=== PATIENT | male | born 1940 | race Caucasian/White ===

== ENCOUNTER 2019-01-19 00:06 | Inpatient (IN) | payer MEDICARE ==
[2019-01-19 00:36] VITALS: BP 167/81
[2019-01-19] MEDS ORDERED: Magnesium Hydroxide (MOM) 30 mL UDC PO PRN (04:53)
[2019-01-19] MEDS: Multivitamin Tab PO SCH (08:44)
[2019-01-19 09:35] LABS: CHOLESTEROL 227 mg/dL (<200); HDL -HIGH DENSITY LIPOPROTEIN 56 mg/dL (23-92); TRIGLYCERIDES 150 mg/dL (<150)
--- NOTE | 2019-01-19 13:05 | History & Physical ---
ADMIT DATE: 01/19/2019 IDENTIFYING INFORMATION: The patient is an 78-year-old male. CHIEF COMPLAINT: The patient admitted on hold until for danger to self. HISTORY OF PRESENT ILLNESS: The patient was admitted on a hold because he was found with a knife in his hand. The patient himself was a reasonable historian. He said that he has a friend of him that stage IV cancer and that he was upset. He was crying. He picked up a knife his son saw him and he picked it from him. His son called the police. The patient reports that he has been sleeping well, eating well. He denies any auditory or visual hallucination or paranoia. He admits to feeling depressed because of the of his friend. He denies any substance abuse. PAST PSYCHIATRIC HISTORY: The patient denies any prior psychiatric treatment. The patient denies any prior suicide attempt. He reports he drinks alcohol once in a while glass of wine. Never had substance abuse problems. MEDICAL HISTORY: The patient apparently has longterm. He has high blood pressure. He is on metoprolol. ALLERGIES: HE IS ALLERGIC TO PENICILLIN. FAMILY AND SOCIAL HISTORY: The patient, who has been 49 years, has 1 son, a boy that 44 years of age. His is 70 years of age and he is happily . He lives with his family. He reports that he has high school education. 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 He reported no family psychotic disorder. He has never had substance abuse problem. No legal issues. MENTAL STATUS EXAMINATION: The patient is appropriately dressed, not well groomed. He was alert. He was able to tell me that she is in the hospital. He believes this 03/2000. He know why he is here. His long-term with her age, date of . Recent memory is good for events are coming here, what he ate for breakfast and his insight about his illness is fair. He knows he has a problem. Judgment is poor with him trying to harm himself. The patient, however, was very difficult. Overnight, he was very irritable, agitated and soon became better when they give him the blood pressure medications. IMPRESSION: Major depression, single episode, severe with no psychosis. MEDICAL DIAGNOSIS: Hypertension. PLAN: The patient will be also medical: History of a coma. His assets, he wants to get help. Negative poor coping skills. INITIAL TREATMENT AND PLAN: The patient will be started on Lexapro. We will do group therapy, milieu therapy, and individual therapy. ESTIMATED LENGTH OF STAY: 3-7 days. DISCHARGE CRITERIA: Decrease in depression, feeling better after discharge, outpatient treatment. [facility]# [id number]
--- NOTE | 2019-01-19 14:47 | History and Physical ---
History of Present Illness - HPI Chief Complaint: Patient was put in 5150 HPI: Patient was found with a knife and family assumed that wanted to hurt himself, Family called police and he was put in 5150 Vital Signs: Last Vital Signs Temp 98 F 01/19/19 06:30 Pulse 123 01/19/19 08:44 Resp 20 01/19/19 06:30 BP 158/100 01/19/19 08:44 Pulse Ox 98 01/19/19 06:30 Past Medical History Cardiovascular: Report: HTN Pulmonary: Report: No Pertinent Hx [employer]: Report: No Pertinent Hx GI: Report: No Pertinent Hx Psych: Report: No Pertinent Hx Musculoskeletal: Report: No Pertinent Hx Rheumatologic: Report: No pertinent Hx Infectious Disease: Report: No Pertinent Hx Renal/: Report: No Pertinent Hx Endocrine: Report: No Pertinent Hx Dermatology: Report: No Pertinent Hx Other History: glaucoma and macular degeneration - Past Surgical History Past Surgical History: No pertinent Hx Family Medical History - Family Member Mother History Unknown: Yes Father History Unknown: Yes Social History Smoke: No Alcohol: Occassional Drugs: None Lives: With Family Domestic Violence: Negative - Allergies Allergies/Adverse Reactions: Allergies Allergy/AdvReac Type Severity Reaction Status Date / Time Penicillins [PCN] Allergy Verified 01/19/19 00:36 Review of Systems - Review of Systems Constitutional: Report: No Significant Eyes: Report: Vision Change, Other ENT: Report: No Significant Respiratory: Report: No Significant Cardiovascular: Report: No Significant Gastrointestinal: Report: No Significant Genitourinary: Report: No Significant Musculoskeletal: Report: No Significant Skin: Report: No Significant Neurological: Report: No Significant Physical Exam - Physical Exam HEENT: Report: Ears Nose Throat within normal limits Neck: Report: Within normal limits Cardiovascular Systems: Report: Regular, Rate and Rhythm Respiratory: Report: Breath Sounds are within normal limits Abdomen: Report: Non-tender to palpation Back: Report: Inspection of back is within normal limits. Extremities: Report: Non-tender to palpation. Skin: Report: Color of skin is within normal limits Neuro/Psych: Report: Depressed affect - Lab Results All Lab Results last 24 hours: Laboratory Results - last 24 hr 01/19/19 06:43 Triglycerides 150 Cholesterol 227 H LDL Cholesterol Direct 161 HDL Cholesterol 56 - Assessment Assessment: Patient is sleeping but arousable, he is in no acute distress. Dx: HTN, Glaucoma, Macular degeneration, Major depression. - Plan Plan: Patient is follow by Psychiatry. He is in Metoprolol for HTN and heart rate control. Will continue to monitor.
[2019-01-20 07:46] LABS: % BASOPHILS 0.4 % (0.0-2.0); % EOSINOPHILS 3.3 % (0.0-5.0); % LYMPHOCYTES 26.6 % (20.0-50.0); % MONOCYTES 9.4 % (2.0-10.0); % NEUTROPHILS 60.3 % (40.0-80.0); EOSINOPHILE ABSOLUTE 0.3 Th/cmm (0.1-0.4); HEMATOCRIT 44.8 % (41.0-60); HEMOGLOBIN 14.8 gm/dL (12-16); LYMPHOCYTE ABSOLUTE 2.2 Th/cmm (1.5-3.0); MEAN CELL VOLUME 89.7 fl (80-99); MEAN CORPUSCULAR HEMOGLOBIN 29.6 pg (27.0-31.0); MEAN PLATELET VOLUME 8.1 fl; MONOCYTE ABSOLUTE 0.8 Th/cmm (0.3-1.0); NEUTROPHILE ABSOLUTE 4.8 Th/cmm (1.8-8.0); PLATELET COUNT 205 Th/cmm (150-400); RED BLOOD COUNT 4.99 Mil/cmm (3.80-5.80); RED CELL DISTRIBUTION WIDTH 12.7 % (11.5-20.0); WHITE BLOOD COUNT 8.1 Th/cmm (4.8-10.8)
[2019-01-20 08:25] LABS: ALB/GLOB RATIO 1.5 (1.0-1.8); ALBUMIN 3.8 gm/dL (4.2-5.5); ALKALINE PHOSPHATASE 64 U/L (34-104); BILIRUBIN,TOTAL 1.2 mg/dL (0.3-1.0); BUN - UREA NITROGEN 20 mg/dL (7-25); CALCIUM SERUM 9.4 mg/dL (8.6-10.3); CARBON DIOXIDE 20.4 mEq/L (21.0-31.0); CHLORIDE 104 mEq/L (98-107); CREATININE - SERUM 0.7 mg/dL (0.7-1.3); GLUCOSE 162 mg/dL (70-105); POTASSIUM SERUM 3.4 mEq/L (3.5-5.1); SGOT 12 U/L (13-39); SGPT/ALT 15 U/L (7-52); SODIUM SERUM 133 mEq/L (136-145); TOTAL PROTEIN,SERUM 6.4 gm/dL (6.0-8.3)
[2019-01-20] MEDS: Multivitamin Tab PO SCH (08:27)
[2019-01-20] MEDS: Escitalopram Oxalate 5 mg Tab PO SCH (08:27)
--- NOTE | 2019-01-20 08:43 | General Progress Note ---
Subjective - Review of Systems Service Date: 01/20/19 Subjective: I fell fine Objective - Results Result Diagrams: 01/20/19 07:30 Recent Labs: Laboratory Last Values WBC 8.1 Th/cmm (4.8-10.8) 01/20/19 07:30 RBC 4.99 Mil/cmm (3.80-5.80) 01/20/19 07:30 Hgb 14.8 gm/dL (12-16) 01/20/19 07:30 Hct 44.8 % (41.0-60) 01/20/19 07:30 MCV 89.7 fl (80-99) 01/20/19 07:30 MCH 29.6 pg (27.0-31.0) 01/20/19 07:30 MCHC Differential 33.0 pg (28.0-36.0) 01/20/19 07:30 RDW 12.7 % (11.5-20.0) 01/20/19 07:30 Plt Count 205 Th/cmm (150-400) 01/20/19 07:30 MPV 8.1 fl 01/20/19 07:30 Neutrophils % 60.3 % (40.0-80.0) 01/20/19 07:30 Lymphocytes % 26.6 % (20.0-50.0) 01/20/19 07:30 Monocytes % 9.4 % (2.0-10.0) 01/20/19 07:30 Eosinophils % 3.3 % (0.0-5.0) 01/20/19 07:30 Basophils % 0.4 % (0.0-2.0) 01/20/19 07:30 Triglycerides 150 mg/dL (<150) 01/19/19 06:43 Cholesterol 227 mg/dL (<200) H 01/19/19 06:43 LDL Cholesterol Direct 161 mg/dL (75-193) 01/19/19 06:43 HDL Cholesterol 56 mg/dL (23-92) 01/19/19 06:43 - Physical Exam Vitals and I&O: Vital Signs Temp 98 F 01/20/19 06:33 Pulse 92 01/20/19 08:28 Resp 18 01/20/19 06:33 BP 120/82 01/20/19 08:28 Pulse Ox 98 01/20/19 06:33 Intake & Output 01/19/19 01/20/19 01/20/19 18:59 06:59 18:59 Intake Total 240 Balance 240 Intake: Oral 240 Other: # Voids 1 Active Medications: Current Medications Acetaminophen (Tylenol) 650 mg PO Q4HR PRN PRN Reason: Mild Pain / Temp above 100 Stop: 03/20/19 03:51 Brimonidine Tartrate (Alphagan 0.15% Ophth Soln) 1 drop EACH EYE Q12HR@0630, 1830 [facility] Stop: 03/20/19 18:29 Last Admin: 01/20/19 06:30 Dose: 1 drop Dorzolamide/Timolol (Cosopt Ophth Soln) 1 drop EACH EYE Q12HR@0600,1800 [facility] Stop: 03/20/19 17:59 Last Admin: 01/20/19 06:00 Dose: 1 drop Escitalopram Oxalate (Lexapro) 5 mg PO DAILY [facility]; Protocol Stop: 03/21/19 08:59 Last Admin: 01/20/19 08:27 Dose: 5 mg Latanoprost (Xalatan 0.005% Ophth Soln) 1 drop EACH EYE HS [facility] Stop: 03/20/19 20:59 Last Admin: 01/19/19 21:15 Dose: 1 drop Lorazepam (Ativan) 0.5 mg PO Q4HR PRN; Protocol PRN Reason: Anxiety/agitation Stop: 02/18/19 03:51 Last Admin: 01/19/19 08:44 Dose: 0.5 mg Magnesium Hydroxide (Milk Of Magnesia) 30 ml PO HS PRN PRN Reason: Constipation Metoprolol Tartrate (Lopressor) 25 mg PO BID [facility] Stop: 03/20/19 08:59 Last Admin: 01/20/19 08:28 Dose: 25 mg Multivitamins/Vitamin C (Theragran) 1 tab PO DAILY [facility] Stop: 03/20/19 08:59 Last Admin: 01/20/19 08:27 Dose: 1 tab Zolpidem Tartrate (Ambien) 5 mg PO HS PRN PRN Reason: Insomnia Stop: 03/20/19 03:51 General: Alert, No acute distress HEENT: Atraumatic, Other (Low vision) Neck: Supple Cardiovascular: Regular rate Lungs: Clear to auscultation Abdomen: Bowel sounds Neurological: Normal gait Skin: Other (Warm ) Psych/Mental Status: Other (Awake, alert, calm) Assessment/Plan - Assessment Assessment: Patient is awake, alert, calm, in no acute distress. BP and Heart rate on control. Dx: HTN, Galucoma, Macular degeneration, Major depression. - Plan Plan: Patient is follow by Psychiatry. He is in Metoprolol for HTN and heart rate control. Will continue to monitor.
--- NOTE | 2019-01-21 00:33 | Progress Notes ---
DATE: 01/20/2019 Case was discussed with staff of the patient and reviewed records. We also met with his son and who happens to be here. They report that this patient needs to have a psychiatrist, his psychiatrist . The patient has been going through a lot changes. He has had 2 friends who and one is currently ill, and in the last 2 months, this has been precipitating factor. The patient has no prior suicide attempt; however, he was hospitalized like 20 years ago in [facility] and they treated him there and he was able to get help. He has been stressed out. He is hard of hearing and cannot see very well. So, they do not want him to go anywhere except back home and they want to make sure that he stays stable. He is tolerating the Lexapro with no side effects. The patient has minimal events that led to his admission. He is willing to continue treatment and we will continue to work with the patient in group therapy, milieu therapy, and adjust medications as needed. JOB# [id number]
--- NOTE | 2019-01-21 08:42 | General Progress Note ---
Subjective - Review of Systems Service Date: 01/21/19 Subjective: I am fine Objective - Results Result Diagrams: 01/20/19 07:30 01/20/19 07:30 Recent Labs: Laboratory Last Values WBC 8.1 Th/cmm (4.8-10.8) 01/20/19 07:30 RBC 4.99 Mil/cmm (3.80-5.80) 01/20/19 07:30 Hgb 14.8 gm/dL (12-16) 01/20/19 07:30 Hct 44.8 % (41.0-60) 01/20/19 07:30 MCV 89.7 fl (80-99) 01/20/19 07:30 MCH 29.6 pg (27.0-31.0) 01/20/19 07:30 MCHC Differential 33.0 pg (28.0-36.0) 01/20/19 07:30 RDW 12.7 % (11.5-20.0) 01/20/19 07:30 Plt Count 205 Th/cmm (150-400) 01/20/19 07:30 MPV 8.1 fl 01/20/19 07:30 Neutrophils % 60.3 % (40.0-80.0) 01/20/19 07:30 Lymphocytes % 26.6 % (20.0-50.0) 01/20/19 07:30 Monocytes % 9.4 % (2.0-10.0) 01/20/19 07:30 Eosinophils % 3.3 % (0.0-5.0) 01/20/19 07:30 Basophils % 0.4 % (0.0-2.0) 01/20/19 07:30 Sodium 133 mEq/L (136-145) L 01/20/19 07:30 Potassium 3.4 mEq/L (3.5-5.1) L 01/20/19 07:30 Chloride 104 mEq/L (98-107) 01/20/19 07:30 Carbon Dioxide 20.4 mEq/L (21.0-31.0) L 01/20/19 07:30 Anion Gap 12.0 (7.0-16.0) 01/20/19 07:30 BUN 20 mg/dL (7-25) 01/20/19 07:30 Creatinine 0.7 mg/dL (0.7-1.3) 01/20/19 07:30 Est GFR ( Amer) TNP 01/20/19 07:30 Est GFR (Non-Af Amer) TNP 01/20/19 07:30 BUN/Creatinine Ratio 28.6 01/20/19 07:30 Glucose 162 mg/dL (70-105) H 01/20/19 07:30 Calcium 9.4 mg/dL (8.6-10.3) 01/20/19 07:30 Total Bilirubin 1.2 mg/dL (0.3-1.0) H 01/20/19 07:30 AST 12 U/L (13-39) L 01/20/19 07:30 ALT 15 U/L (7-52) 01/20/19 07:30 Alkaline Phosphatase 64 U/L (34-104) 01/20/19 07:30 Total Protein 6.4 gm/dL (6.0-8.3) 01/20/19 07:30 Albumin 3.8 gm/dL (4.2-5.5) L 01/20/19 07:30 Globulin 2.6 gm/dL 01/20/19 07:30 Albumin/Globulin Ratio 1.5 (1.0-1.8) 01/20/19 07:30 Triglycerides 150 mg/dL (<150) 01/19/19 06:43 Cholesterol 227 mg/dL (<200) H 01/19/19 06:43 LDL Cholesterol Direct 161 mg/dL (75-193) 01/19/19 06:43 HDL Cholesterol 56 mg/dL (23-92) 01/19/19 06:43 TSH 0.62 uIU/ml (0.34-5.60) 01/20/19 07:30 - Physical Exam Vitals and I&O: Vital Signs Temp 98.6 F 01/21/19 06:33 Pulse 94 01/21/19 06:33 Resp 20 01/21/19 06:33 BP 141/69 01/21/19 06:33 Pulse Ox 96 01/21/19 06:33 Intake & Output 01/20/19 01/21/19 01/21/19 18:59 06:59 18:59 Intake Total 950 120 Balance 950 120 Intake: Oral 950 120 Other: # Voids 4 2 # Bowel Movements 1 0 Active Medications: Current Medications Acetaminophen (Tylenol) 650 mg PO Q4HR PRN PRN Reason: Mild Pain / Temp above 100 Stop: 03/20/19 03:51 Brimonidine Tartrate (Alphagan 0.15% Oph Soln) 1 drop EACH EYE Q12HR@0630, 1830 [facility] Stop: 03/20/19 18:29 Last Admin: 01/21/19 06:54 Dose: 1 drop Dorzolamide/Timolol (Cosopt Ophth Soln) 1 drop EACH EYE Q12HR@0600,1800 [facility] Stop: 03/20/19 17:59 Last Admin: 01/21/19 06:28 Dose: 1 drop Escitalopram Oxalate (Lexapro) 5 mg PO DAILY [facility]; Protocol Stop: 03/21/19 08:59 Last Admin: 01/20/19 08:27 Dose: 5 mg Latanoprost (Xalatan 0.005% Oph Soln) 1 drop EACH EYE HS [facility] Stop: 03/20/19 20:59 Last Admin: 01/20/19 21:18 Dose: 1 drop Lorazepam (Ativan) 0.5 mg PO Q4HR PRN; Protocol PRN Reason: Anxiety/agitation Stop: 02/18/19 03:51 Last Admin: 01/19/19 08:44 Dose: 0.5 mg Magnesium Hydroxide (Milk Of Magnesia) 30 ml PO HS PRN PRN Reason: Constipation Metoprolol Tartrate (Lopressor) 25 mg PO BID [facility] Stop: 03/20/19 08:59 Last Admin: 01/20/19 16:36 Dose: 25 mg Multivitamins/Vitamin C (Theragran) 1 tab PO DAILY [facility] Stop: 03/20/19 08:59 Last Admin: 01/20/19 08:27 Dose: 1 tab Zolpidem Tartrate (Ambien) 5 mg PO HS PRN PRN Reason: Insomnia Stop: 03/20/19 03:51 General: Alert, No acute distress HEENT: Atraumatic, Other (Low vision) Neck: Supple Cardiovascular: Regular rate Lungs: Clear to auscultation Abdomen: Bowel sounds Neurological: Normal gait Skin: Other (Warm ) Psych/Mental Status: Other (Awake, alert, calm) Assessment/Plan - Assessment Assessment: Patient is sleeping but arousable, he is in no acute distress. BP and heart rate on control. Dx: HTN, Glaucoma, Macular degeneration, Legally blind, Major depression. - Plan Plan: Patient is follow by Psychiatry. He is in Metoprolol for HTN and heart rate control. Will continue to monitor.
[2019-01-21] MEDS: Multivitamin Tab PO SCH (08:49)
[2019-01-21] MEDS: Escitalopram Oxalate 5 mg Tab PO SCH (08:49)
--- NOTE | 2019-01-22 00:18 | Progress Notes ---
DATE: 01/21/2019 SUBJECTIVE: Case was discussed with staff of the patient, reviewed records. The patient is alert; however, he is lying. He is, however, somewhat hard of hearing; however, he is sleeping well, eating well. He is minimizing any current intent to harm himself or anybody. He tolerated the Lexapro with no side effects. His TSH is within normal range. He has high cholesterol, the rest are within normal range of lipid panel. His chemistry panel with low sodium, low potassium, high blood sugar, and high total bilirubin. His CBC is within normal range. We will continue to work with the patient in group therapy, milieu therapy, and adjust medications as needed. [facility]# [id number]
--- NOTE | 2019-01-22 08:52 | General Progress Note ---
Subjective - Review of Systems Service Date: 01/22/19 Subjective: I am fine Objective - Results Result Diagrams: 01/20/19 07:30 01/20/19 07:30 Recent Labs: Laboratory Last Values WBC 8.1 Th/cmm (4.8-10.8) 01/20/19 07:30 RBC 4.99 Mil/cmm (3.80-5.80) 01/20/19 07:30 Hgb 14.8 gm/dL (12-16) 01/20/19 07:30 Hct 44.8 % (41.0-60) 01/20/19 07:30 MCV 89.7 fl (80-99) 01/20/19 07:30 MCH 29.6 pg (27.0-31.0) 01/20/19 07:30 MCHC Differential 33.0 pg (28.0-36.0) 01/20/19 07:30 RDW 12.7 % (11.5-20.0) 01/20/19 07:30 Plt Count 205 Th/cmm (150-400) 01/20/19 07:30 MPV 8.1 fl 01/20/19 07:30 Neutrophils % 60.3 % (40.0-80.0) 01/20/19 07:30 Lymphocytes % 26.6 % (20.0-50.0) 01/20/19 07:30 Monocytes % 9.4 % (2.0-10.0) 01/20/19 07:30 Eosinophils % 3.3 % (0.0-5.0) 01/20/19 07:30 Basophils % 0.4 % (0.0-2.0) 01/20/19 07:30 Sodium 133 mEq/L (136-145) L 01/20/19 07:30 Potassium 3.4 mEq/L (3.5-5.1) L 01/20/19 07:30 Chloride 104 mEq/L (98-107) 01/20/19 07:30 Carbon Dioxide 20.4 mEq/L (21.0-31.0) L 01/20/19 07:30 Anion Gap 12.0 (7.0-16.0) 01/20/19 07:30 BUN 20 mg/dL (7-25) 01/20/19 07:30 Creatinine 0.7 mg/dL (0.7-1.3) 01/20/19 07:30 Est GFR ( Amer) TNP 01/20/19 07:30 Est GFR (Non-Af Amer) TNP 01/20/19 07:30 BUN/Creatinine Ratio 28.6 01/20/19 07:30 Glucose 162 mg/dL (70-105) H 01/20/19 07:30 Calcium 9.4 mg/dL (8.6-10.3) 01/20/19 07:30 Total Bilirubin 1.2 mg/dL (0.3-1.0) H 01/20/19 07:30 AST 12 U/L (13-39) L 01/20/19 07:30 ALT 15 U/L (7-52) 01/20/19 07:30 Alkaline Phosphatase 64 U/L (34-104) 01/20/19 07:30 Total Protein 6.4 gm/dL (6.0-8.3) 01/20/19 07:30 Albumin 3.8 gm/dL (4.2-5.5) L 01/20/19 07:30 Globulin 2.6 gm/dL 01/20/19 07:30 Albumin/Globulin Ratio 1.5 (1.0-1.8) 01/20/19 07:30 Triglycerides 150 mg/dL (<150) 01/19/19 06:43 Cholesterol 227 mg/dL (<200) H 01/19/19 06:43 LDL Cholesterol Direct 161 mg/dL (75-193) 01/19/19 06:43 HDL Cholesterol 56 mg/dL (23-92) 01/19/19 06:43 TSH 0.62 uIU/ml (0.34-5.60) 01/20/19 07:30 - Physical Exam Vitals and I&O: Vital Signs Temp 97.2 F 01/22/19 06:38 Pulse 91 01/22/19 06:38 Resp 18 01/22/19 06:38 BP 149/70 01/22/19 06:38 Pulse Ox 98 01/22/19 06:38 Intake & Output 01/21/19 01/22/19 01/22/19 18:59 06:59 18:59 Intake Total 1500 120 Balance 1500 120 Intake: Oral 1500 120 Other: # Voids 3 2 # Bowel Movements 0 0 Active Medications: Current Medications Acetaminophen (Tylenol) 650 mg PO Q4HR PRN PRN Reason: Mild Pain / Temp above 100 Stop: 03/20/19 03:51 Brimonidine Tartrate (Alphagan 0.15% Oph Soln) 1 drop EACH EYE Q12HR@0630, 1830 [facility] Stop: 03/20/19 18:29 Last Admin: 01/22/19 06:54 Dose: 1 drop Dorzolamide/Timolol (Cosopt Ophth Soln) 1 drop EACH EYE Q12HR@0600,1800 [facility] Stop: 03/20/19 17:59 Last Admin: 01/22/19 06:29 Dose: 1 drop Escitalopram Oxalate (Lexapro) 5 mg PO DAILY [facility]; Protocol Stop: 03/21/19 08:59 Last Admin: 01/21/19 08:49 Dose: 5 mg Latanoprost (Xalatan 0.005% Oph Soln) 1 drop EACH EYE HS [facility] Stop: 03/20/19 20:59 Last Admin: 01/21/19 20:12 Dose: 1 drop Lorazepam (Ativan) 0.5 mg PO Q4HR PRN; Protocol PRN Reason: Anxiety/agitation Stop: 02/18/19 03:51 Last Admin: 01/19/19 08:44 Dose: 0.5 mg Magnesium Hydroxide (Milk Of Magnesia) 30 ml PO HS PRN PRN Reason: Constipation Metoprolol Tartrate (Lopressor) 25 mg PO BID [facility] Stop: 03/20/19 08:59 Last Admin: 01/21/19 16:54 Dose: 25 mg Multivitamins/Vitamin C (Theragran) 1 tab PO DAILY [facility] Stop: 03/20/19 08:59 Last Admin: 01/21/19 08:49 Dose: 1 tab Zolpidem Tartrate (Ambien) 5 mg PO HS PRN PRN Reason: Insomnia Stop: 03/20/19 03:51 General: Alert, No acute distress HEENT: Atraumatic, Other (Low vision) Neck: Supple Cardiovascular: Regular rate Lungs: Clear to auscultation Abdomen: Bowel sounds Neurological: Normal gait Skin: Other (Warm ) Psych/Mental Status: Other (Awake, alert, calm) Assessment/Plan - Assessment Assessment: Patient is sleeping but arousable, he is in no acute distress. BP and heart rate on control. Dx: HTN, Glaucoma, Macular degeneration, Legally blind, Major depression. - Plan Plan: Patient is follow by Psychiatry. He is in Metoprolol for HTN and heart rate control. Will continue to monitor.
[2019-01-22] MEDS: Escitalopram Oxalate 5 mg Tab PO SCH (09:41)
[2019-01-22] MEDS: Multivitamin Tab PO SCH (09:41)
--- NOTE | 2019-01-23 00:08 | Progress Notes ---
DATE: 01/22/2019 Case was discussed with staff of the patient, reviewed records. The patient continues to be depressed, continues to stay to himself. He is legally blind. He is unpredictable. He is on Lexapro and I did increase the dose yesterday to 10 mg a day with no side effects, no sedation, no nausea and his family would like for him to be able to go home. They do want to be placed in any nursing facility and we will continue to work with the patient in group therapy, milieu therapy, adjust the medication as needed. JOB# [id number]
--- NOTE | 2019-01-23 00:22 | Progress Notes ---
DATE [facility]# [id number] MTDMartina
--- NOTE | 2019-01-23 08:44 | General Progress Note ---
Subjective - Review of Systems Service Date: 01/23/19 Subjective: I am ok Objective - Results Result Diagrams: 01/20/19 07:30 01/20/19 07:30 Recent Labs: Laboratory Last Values WBC 8.1 Th/cmm (4.8-10.8) 01/20/19 07:30 RBC 4.99 Mil/cmm (3.80-5.80) 01/20/19 07:30 Hgb 14.8 gm/dL (12-16) 01/20/19 07:30 Hct 44.8 % (41.0-60) 01/20/19 07:30 MCV 89.7 fl (80-99) 01/20/19 07:30 MCH 29.6 pg (27.0-31.0) 01/20/19 07:30 MCHC Differential 33.0 pg (28.0-36.0) 01/20/19 07:30 RDW 12.7 % (11.5-20.0) 01/20/19 07:30 Plt Count 205 Th/cmm (150-400) 01/20/19 07:30 MPV 8.1 fl 01/20/19 07:30 Neutrophils % 60.3 % (40.0-80.0) 01/20/19 07:30 Lymphocytes % 26.6 % (20.0-50.0) 01/20/19 07:30 Monocytes % 9.4 % (2.0-10.0) 01/20/19 07:30 Eosinophils % 3.3 % (0.0-5.0) 01/20/19 07:30 Basophils % 0.4 % (0.0-2.0) 01/20/19 07:30 Sodium 133 mEq/L (136-145) L 01/20/19 07:30 Potassium 3.4 mEq/L (3.5-5.1) L 01/20/19 07:30 Chloride 104 mEq/L (98-107) 01/20/19 07:30 Carbon Dioxide 20.4 mEq/L (21.0-31.0) L 01/20/19 07:30 Anion Gap 12.0 (7.0-16.0) 01/20/19 07:30 BUN 20 mg/dL (7-25) 01/20/19 07:30 Creatinine 0.7 mg/dL (0.7-1.3) 01/20/19 07:30 Est GFR ( Amer) TNP 01/20/19 07:30 Est GFR (Non-Af Amer) TNP 01/20/19 07:30 BUN/Creatinine Ratio 28.6 01/20/19 07:30 Glucose 162 mg/dL (70-105) H 01/20/19 07:30 Calcium 9.4 mg/dL (8.6-10.3) 01/20/19 07:30 Total Bilirubin 1.2 mg/dL (0.3-1.0) H 01/20/19 07:30 AST 12 U/L (13-39) L 01/20/19 07:30 ALT 15 U/L (7-52) 01/20/19 07:30 Alkaline Phosphatase 64 U/L (34-104) 01/20/19 07:30 Total Protein 6.4 gm/dL (6.0-8.3) 01/20/19 07:30 Albumin 3.8 gm/dL (4.2-5.5) L 01/20/19 07:30 Globulin 2.6 gm/dL 01/20/19 07:30 Albumin/Globulin Ratio 1.5 (1.0-1.8) 01/20/19 07:30 Triglycerides 150 mg/dL (<150) 01/19/19 06:43 Cholesterol 227 mg/dL (<200) H 01/19/19 06:43 LDL Cholesterol Direct 161 mg/dL (75-193) 01/19/19 06:43 HDL Cholesterol 56 mg/dL (23-92) 01/19/19 06:43 TSH 0.62 uIU/ml (0.34-5.60) 01/20/19 07:30 - Physical Exam Vitals and I&O: Vital Signs Temp 97.4 F 01/23/19 06:17 Pulse 100 01/23/19 06:17 Resp 18 01/23/19 06:17 BP 154/73 01/23/19 06:17 Pulse Ox 96 01/23/19 06:17 Intake & Output 01/22/19 01/23/19 01/23/19 18:59 06:59 18:59 Intake Total 1200 120 Balance 1200 120 Intake: Oral 1200 120 Other: # Voids 3 # Bowel Movements 1 Active Medications: Current Medications Acetaminophen (Tylenol) 650 mg PO Q4HR PRN PRN Reason: Mild Pain / Temp above 100 Stop: 03/20/19 03:51 Brimonidine Tartrate (Alphagan 0.15% Oph Soln) 1 drop EACH EYE Q12HR@0630, 1830 [facility] Stop: 03/20/19 18:29 Last Admin: 01/23/19 06:30 Dose: 1 drop Dorzolamide/Timolol (Cosopt Ophth Soln) 1 drop EACH EYE Q12HR@0600,1800 [facility] Stop: 03/20/19 17:59 Last Admin: 01/23/19 06:01 Dose: 1 drop Escitalopram Oxalate (Lexapro) 5 mg PO DAILY [facility]; Protocol Stop: 03/21/19 08:59 Last Admin: 01/22/19 09:41 Dose: 5 mg Latanoprost (Xalatan 0.005% Oph Soln) 1 drop EACH EYE HS [facility] Stop: 03/20/19 20:59 Last Admin: 01/22/19 21:09 Dose: 1 drop Lorazepam (Ativan) 0.5 mg PO Q4HR PRN; Protocol PRN Reason: Anxiety/agitation Stop: 02/18/19 03:51 Last Admin: 01/19/19 08:44 Dose: 0.5 mg Magnesium Hydroxide (Milk Of Magnesia) 30 ml PO HS PRN PRN Reason: Constipation Metoprolol Tartrate (Lopressor) 25 mg PO BID [facility] Stop: 03/20/19 08:59 Last Admin: 01/22/19 17:35 Dose: 25 mg Multivitamins/Vitamin C (Theragran) 1 tab PO DAILY [facility] Stop: 03/20/19 08:59 Last Admin: 01/22/19 09:41 Dose: 1 tab Zolpidem Tartrate (Ambien) 5 mg PO HS PRN PRN Reason: Insomnia Stop: 03/20/19 03:51 General: Alert, No acute distress HEENT: Atraumatic, Other (Low vision) Neck: Supple Cardiovascular: Regular rate Lungs: Clear to auscultation Abdomen: Bowel sounds Neurological: Normal gait Skin: Other (Warm ) Psych/Mental Status: Other (Awake, alert, calm) Assessment/Plan - Assessment Assessment: Patient is awake, alert, calm, in no acute distress. BP and heart rate on control. Dx: HTN, Glaucoma, Macular degeneration, Legally blind, Major depression. - Plan Plan: Patient is follow by Psychiatry. He is in Metoprolol for HTN and heart rate control. Will continue to monitor. Nutritional Asmnt/Malnutr-PDOC - Dietary Evaluation Malnutrition Findings (Please click <Entered> for more info): Nutritional Asmnt/Malnutrition Start: 01/22/19 08: 51 Text: Status: Complete Freq: Protocol: Document 01/22/19 08:51 LCHENG (Rec: 01/22/19 08:58 [email or web address] [email or web address]) Nutritional Asmnt/Malnutrition Patient General Information Nutritional Screening Moderate Risk Diagnosis psychosis NOS Pertinent Medical Hx/Surgical Hx HTN, glaucoma, macular degeneration Subjective Information Pt seen in bathroom at time of visit. Per EMR, PO intake 75% . Current Diet Order/ Nutrition Support [facility] soft chopped Pertinent Medications theragran Pertinent Labs 01/20 Na 133, K 3.4, Glucose 162 , Alb 3.8 Nutritional Hx/Data Height 1.78 m Height (Calculated Centimeters) 177.8 Current Weight (lbs) 68.039 kg Weight (Calculated Kilograms) 68.0 Weight (Calculated Grams) 31903.9 [place] Body Weight 166 Body Mass Index (BMI) 21.5 Weight Status Approriate GI Symptoms GI Symptoms None Last BM 48 Difficult in: None Skin Integrity/Comment: dryness Current %PO Good (75-100%) Estimated Nutritional Goals BEE in Kcals: Using Current wt Calories/Kcals/Kg 25-30 Kcals Calculated 4930-2524 Protein: Using Current wt Protein g/k Protein Calculated 68 Fluid: ml 1700-2040ml (1ml/kcal) Nutritional Problem No current Nutrition Prob Problem N/A Intervention/Recommendation Comments 1. Continue with [facility] soft chopped diet as ordered. Monitor glucose level and add CCHO diet if glucose continue elevated. 2. Monitor PO intake, wt, labs and skin integrity 3. F/U as low risk in 7 days Expected Outcomes/Goals Expected Outcomes/Goals 1. PO intake to meet at least 75% of nutritional needs. 2. Wt stability, skin to remain intact, labs to approach WNL.
[2019-01-23] MEDS: Multivitamin Tab PO SCH (09:05)
[2019-01-23] MEDS: Escitalopram Oxalate 5 mg Tab PO SCH (09:06)
--- NOTE | 2019-01-23 12:48 | Progress Notes ---
DATE: 01/23/2019 SUBJECTIVE: Case was discussed with staff of the patient, reviewed records. The patient signed voluntary after his came yesterday. The patient's depression is starting to show some progress. He is sleeping better, eating better. He has been compliant with the medication with no side effects, no sedation or nausea. I will continue the patient in group therapy, milieu therapy and adjust the patient. [facility]# [id number]
[2019-01-24] MEDS: Multivitamin Tab PO SCH (08:27)
[2019-01-24] MEDS: Escitalopram Oxalate 5 mg Tab PO SCH (08:27)
--- NOTE | 2019-01-24 08:50 | General Progress Note ---
Subjective - Review of Systems Service Date: 01/24/19 Subjective: I am ok Objective - Results Result Diagrams: 01/20/19 07:30 01/20/19 07:30 Recent Labs: Laboratory Last Values WBC 8.1 Th/cmm (4.8-10.8) 01/20/19 07:30 RBC 4.99 Mil/cmm (3.80-5.80) 01/20/19 07:30 Hgb 14.8 gm/dL (12-16) 01/20/19 07:30 Hct 44.8 % (41.0-60) 01/20/19 07:30 MCV 89.7 fl (80-99) 01/20/19 07:30 MCH 29.6 pg (27.0-31.0) 01/20/19 07:30 MCHC Differential 33.0 pg (28.0-36.0) 01/20/19 07:30 RDW 12.7 % (11.5-20.0) 01/20/19 07:30 Plt Count 205 Th/cmm (150-400) 01/20/19 07:30 MPV 8.1 fl 01/20/19 07:30 Neutrophils % 60.3 % (40.0-80.0) 01/20/19 07:30 Lymphocytes % 26.6 % (20.0-50.0) 01/20/19 07:30 Monocytes % 9.4 % (2.0-10.0) 01/20/19 07:30 Eosinophils % 3.3 % (0.0-5.0) 01/20/19 07:30 Basophils % 0.4 % (0.0-2.0) 01/20/19 07:30 Sodium 133 mEq/L (136-145) L 01/20/19 07:30 Potassium 3.4 mEq/L (3.5-5.1) L 01/20/19 07:30 Chloride 104 mEq/L (98-107) 01/20/19 07:30 Carbon Dioxide 20.4 mEq/L (21.0-31.0) L 01/20/19 07:30 Anion Gap 12.0 (7.0-16.0) 01/20/19 07:30 BUN 20 mg/dL (7-25) 01/20/19 07:30 Creatinine 0.7 mg/dL (0.7-1.3) 01/20/19 07:30 Est GFR ( Amer) TNP 01/20/19 07:30 Est GFR (Non-Af Amer) TNP 01/20/19 07:30 BUN/Creatinine Ratio 28.6 01/20/19 07:30 Glucose 162 mg/dL (70-105) H 01/20/19 07:30 Calcium 9.4 mg/dL (8.6-10.3) 01/20/19 07:30 Total Bilirubin 1.2 mg/dL (0.3-1.0) H 01/20/19 07:30 AST 12 U/L (13-39) L 01/20/19 07:30 ALT 15 U/L (7-52) 01/20/19 07:30 Alkaline Phosphatase 64 U/L (34-104) 01/20/19 07:30 Total Protein 6.4 gm/dL (6.0-8.3) 01/20/19 07:30 Albumin 3.8 gm/dL (4.2-5.5) L 01/20/19 07:30 Globulin 2.6 gm/dL 01/20/19 07:30 Albumin/Globulin Ratio 1.5 (1.0-1.8) 01/20/19 07:30 Triglycerides 150 mg/dL (<150) 01/19/19 06:43 Cholesterol 227 mg/dL (<200) H 01/19/19 06:43 LDL Cholesterol Direct 161 mg/dL (75-193) 01/19/19 06:43 HDL Cholesterol 56 mg/dL (23-92) 01/19/19 06:43 TSH 0.62 uIU/ml (0.34-5.60) 01/20/19 07:30 - Physical Exam Vitals and I&O: Vital Signs Temp 97.4 F 01/24/19 06:17 Pulse 76 01/24/19 08:26 Resp 18 01/24/19 06:17 BP 112/65 01/24/19 08:26 Pulse Ox 98 01/24/19 06:17 Intake & Output 01/23/19 01/24/19 01/24/19 18:59 06:59 18:59 Intake Total 1400 120 Balance 1400 120 Intake: Oral 1400 120 Other: # Voids 4 3 # Bowel Movements 0 Active Medications: Current Medications Acetaminophen (Tylenol) 650 mg PO Q4HR PRN PRN Reason: Mild Pain / Temp above 100 Stop: 03/20/19 03:51 Brimonidine Tartrate (Alphagan 0.15% Oph Soln) 1 drop EACH EYE Q12HR@0630, 1830 [facility] Stop: 03/20/19 18:29 Last Admin: 01/24/19 06:30 Dose: 1 drop Dorzolamide/Timolol (Cosopt Ophth Soln) 1 drop EACH EYE Q12HR@0600,1800 [facility] Stop: 03/20/19 17:59 Last Admin: 01/24/19 06:00 Dose: 1 drop Escitalopram Oxalate (Lexapro) 5 mg PO DAILY [facility]; Protocol Stop: 03/21/19 08:59 Last Admin: 01/24/19 08:27 Dose: 5 mg Latanoprost (Xalatan 0.005% Oph Soln) 1 drop EACH EYE HS [facility] Stop: 03/20/19 20:59 Last Admin: 01/23/19 20:34 Dose: 1 drop Lorazepam (Ativan) 0.5 mg PO Q4HR PRN; Protocol PRN Reason: Anxiety/agitation Stop: 02/18/19 03:51 Last Admin: 01/23/19 17:22 Dose: 0.5 mg Magnesium Hydroxide (Milk Of Magnesia) 30 ml PO HS PRN PRN Reason: Constipation Metoprolol Tartrate (Lopressor) 25 mg PO BID [facility] Stop: 03/20/19 08:59 Last Admin: 01/24/19 08:26 Dose: Not Given Multivitamins/Vitamin C (Theragran) 1 tab PO DAILY [facility] Stop: 03/20/19 08:59 Last Admin: 01/24/19 08:27 Dose: 1 tab Zolpidem Tartrate (Ambien) 5 mg PO HS PRN PRN Reason: Insomnia Stop: 03/20/19 03:51 General: Alert, No acute distress HEENT: Atraumatic, Other (Low vision) Neck: Supple Cardiovascular: Regular rate Lungs: Clear to auscultation Abdomen: Bowel sounds Neurological: Normal gait Skin: Other (Warm ) Psych/Mental Status: Other (Awake, alert, calm) Assessment/Plan - Assessment Assessment: Patient is awake, alert, calm, in no acute distress. BP and heart rate on control. Dx: HTN, Glaucoma, Macular degeneration, Legally blind, Major depression. - Plan Plan: Patient is follow by Psychiatry. He is in Metoprolol for HTN and heart rate control. Will continue to monitor. Nutritional Asmnt/Malnutr-PDOC - Dietary Evaluation Malnutrition Findings (Please click <Entered> for more info): Nutritional Asmnt/Malnutrition Start: 01/22/19 08: 51 Text: Status: Complete Freq: Protocol: Document 01/22/19 08:51 LCHENG (Rec: 01/22/19 08:58 LCHENG [email or web address]) Nutritional Asmnt/Malnutrition Patient General Information Nutritional Screening Moderate Risk Diagnosis psychosis NOS Pertinent Medical Hx/Surgical Hx HTN, glaucoma, macular degeneration Subjective Information Pt seen in bathroom at time of visit. Per EMR, PO intake 75% . Current Diet Order/ Nutrition Support [facility] soft chopped Pertinent Medications theragran Pertinent Labs 01/20 Na 133, K 3.4, Glucose 162 , Alb 3.8 Nutritional Hx/Data Height 1.78 m Height (Calculated Centimeters) 177.8 Current Weight (lbs) 68.039 kg Weight (Calculated Kilograms) 68.0 Weight (Calculated Grams) 83170.9 [place] Body Weight 166 Body Mass Index (BMI) 21.5 Weight Status Approriate GI Symptoms GI Symptoms None Last BM 48 Difficult in: None Skin Integrity/Comment: dryness Current %PO Good (75-100%) Estimated Nutritional Goals BEE in Kcals: Using Current wt Calories/Kcals/Kg 25-30 Kcals Calculated 0329-5340 Protein: Using Current wt Protein g/k Protein Calculated 68 Fluid: ml 1700-2040ml (1ml/kcal) Nutritional Problem No current Nutrition Prob Problem N/A Intervention/Recommendation Comments 1. Continue with [facility] soft chopped diet as ordered. Monitor glucose level and add CCHO diet if glucose continue elevated. 2. Monitor PO intake, wt, labs and skin integrity 3. F/U as low risk in 7 days Expected Outcomes/Goals Expected Outcomes/Goals 1. PO intake to meet at least 75% of nutritional needs. 2. Wt stability, skin to remain intact, labs to approach WNL.
--- NOTE | 2019-01-24 17:18 | Discharge Summary ---
DATE OF DISCHARGE: 01/24/2019 IDENTIFYING INFORMATION: The patient is an 78-year-old male. HISTORY OF PRESENT ILLNESS: The patient was admitted on hold because he was found with a knife in his hand. The patient himself was a reasonable historian. He said that he has a friend of him stage IV cancer and that he was upset. He was crying. He picked up a knife and son saw him. He picked it from him. His son called the police. The patient reports that he has been sleeping well, eating well. He denies any auditory or visual hallucination or paranoia. He admits to feeling depressed because of of his friend. He denies any substance abuse. He has no prior psychiatric treatment; however, later family has a prior history of treatment for depression long time ago. He denies any substance abuse. THE PATIENT IS ALLERGIC TO PENICILLIN. COURSE IN THE HOSPITAL: The patient was started on Lexapro that was increased to 10 mg a day. The patient tolerated with no side effects. His family was here to see him every day. Discussed the care of them few times. The patient was doing well, sleeping well, eating well, no longer acting out in anyway dangerous. Denies any intent to harm himself or anybody. He denies any hallucinations are improved, we felt that he could be discharged to a lesser level of care. 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 MEDICAL DIAGNOSES: As per medical doctor. The patient will follow up with the psychiatrist, primary care physician, therapist and that was discussed with the family and they are seemed to be very supportive and understanding. EXPECTED OUTCOME: Stable if the patient complies with the above. JOB# [id number]
== END 2019-01-24 13:00 | disposition home or self-care (01) | DRG 885 ==
LOC: GERO 00:06
PROVIDERS: ADMIT Psychiatry & Neurology Psychiatry; ATTEND Psychiatry & Neurology Psychiatry
DX: F33.2 Major depressive disorder, recurrent severe without psychotic features (principal); I10 Essential (primary) hypertension; H40.9 Unspecified glaucoma; H35.30 Unspecified macular degeneration; H54.8 Legal blindness, as defined in USA; Z88.0 Allergy status to penicillin
CPT/HCPCS: 36415-UA; 80053-TC; 80061-TC; 83036-90; 84443-TC; 85025-TC; 93005; Z7610